=== PATIENT | female | born 1950 | race Caucasian/White ===

== ENCOUNTER 2022-04-14 12:50 | Emergency (ER) | payer MEDICARE, SELFPAY ==
--- NOTE | ~2022-04-14 | XR_ITS ---
EXAMINATION: XR chest 2V DATE: 04/14/2022 13:43 INDICATION: Shortness of breath. Chest pain. TECHNIQUE: PA and lateral views of the chest were obtained. COMPARISON: Chest radiograph dated 08/15/2015 FINDINGS: The lungs remain clear with no focal airspace opacities, pulmonary edema, pleural effusion or pneumot horax. The cardiomediastinal silhouette is normal. Moderate degenerative skeletal changes in the spin e and at both shoulders. Cholecystectomy clips in the upper abdomen. IMPRESSION: 1. No acute cardiopulmonary disease. Reviewed, dictated and finalized at location A.
--- NOTE | 2022-04-14 12:52 | ECG_ITS ---
Measurements Intervals [place] Rate: 105 P: 63 WA: 138 QRS: -6 QRSD: 85 T: 65 QT: 320 QTc: 423 Interpretive Statements SINUS TACHYCARDIA FREQUENT ATRIAL PREMATURE COMPLEXES DELAYED PRECORDIAL R/S TRANSITION ABNORMAL ECG NO PREVIOUS ECG AVAILABLE FOR COMPARISON Electronically Signed On 04-14-2022 13:00:31 CDT by Jesus Nath D.O.
[2022-04-14 13:04] VITALS: BP 137/85; PULSE 112; RESP 20; TEMP 36.9; O2SAT 100
[2022-04-14 13:11] LABS: Basophils Absolute Auto 0.1 K/mm3 (0.0-0.1); Basophils Percent Auto 0.8 % (0.2-1.2); Eosinophils Percent Auto 0.4 % (0-4.4); Hematocrit 42.5 % (37.0-47.0); Immature Granulocyte Absolute 0.03 K/mm3 (0.00-0.031); Immature Granulocyte Percent A 0.4 % (0-0.5); Lymphocytes Absolute Auto 3.75 K/mm3 (0.9-3.2); Lymphocytes Percent Auto 52.4 % (18.3-44.2); Mean Corpuscular HGB Conc 32.9 g/dl (32-36); Mean Corpuscular Hemoglobin 31.7 pg (26-34); Mean Corpuscular Volume 96.4 fl (80-100); Mean Platelet Volume 9.2 fl (7.4-10.4); Monocytes Absolute Auto 0.3 K/mm3 (0.1-0.6); Monocytes Percent Auto 4.2 % (2.6-8.5); Neutrophils Percent Auto 41.8 % (45.5-73.1); Platelet Count Result 169 k/mm3 (150-375); Red Blood Count 4.41 M/mm3 (4.2-5.4); Red Cell Distribution Width 14.2 % (11.5-14.5); White Blood Count 7.2 K/mm3 (4.5-10.0)
[2022-04-14 13:21] LABS: Alanine Aminotransferase 71 U/L (6-35); Alkaline Phosphatase 104 U/L (38-126); Anion Gap 12 mmol/L (8-16); Aspartate Amino Transferase 83 U/L (14-36); Blood Urea Nitrogen 11 mg/dL (7-17); Calcium 8.8 mg/dL (8.4-10.2); Carbon Dioxide 24 mmol/L (22-30); Chloride 101 mmol/L (98-107); Estimated CRCL calculation 58 ml/min; Estimated Glomerular Filt Rate > 60; Glucose 117 mg/dL (65-110); Lipase 118 U/L (23-300); Potassium 4.1 mmol/L (3.4-5.0); Sodium 137 mmol/L (137-145)
[2022-04-14 13:33] LABS: Troponin I < 0.012 ng/mL (0.000-0.034)
[2022-04-14 13:46] LABS: INR 1.1; Partial Thromboplastin Time 28.8 SECONDS (22.3-36.8); Prothrombin Time 13.6 Seconds (11.1-14.7)
[2022-04-14 14:54] VITALS: O2SAT 97
[2022-04-14 16:09] LABS: NT Pro B Type Natriuretic Pept 116 pg/mL (5-100)
--- NOTE | 2022-04-14 16:46 | ED.GENADULT ---
HPI - General Adult General Chief complaint: Shortness of Breath/Dyspnea Stated complaint: SOB Time Seen by Provider: 04/14/22 15:09 History of Present Illness HPI narrative: 71-year-old female presenting to the emergency department for evaluation of worsening exertional shortness of breath. Patient states that she has been feeling ill over the last 2 days but that today when she was walking through the grocery store she had onset of worsening shortness of breath. Patient states at that time her heart rate was elevated at 108 and she states her blood pressure was elevated. Upon arrival emergency department patient states she does feel improved. Patient is longer tachycardic and patient states she feels improved. Patient was able to ambulate in the emergency department without any issues. Patient denied any associated chest pain. Related Data Allergies Allergy/AdvReac Type Severity Reaction Status Date / Time chlorpheniramine Allergy Unknown paranoid Verified 04/14/22 15:05 [Scot-Tussin DM] dextromethorphan Allergy Unknown paranoid Verified 04/14/22 15:05 [Robafen DM Cough-Chest Congest] erythromycin base Allergy Unknown paranoid Verified 04/14/22 15:05 guaifenesin Allergy Unknown paranoid Verified 04/14/22 15:05 ibuprofen Allergy Unknown facial Verified 04/14/22 15:05 swelling Review of Systems Review of Systems: CONSTITUTIONAL: Denies fever, chills, or sweats. EYES: Denies visual changes, redness, or discharge. ENT: Denies rhinorrhea, congestion, sore throat, or otalgia. CARDIOVASCULAR: See HPI RESPIRATORY: See HPI GASTROINTESTINAL: Denies abdominal pain, nausea, vomiting, or diarrhea. GENITOURINARY: Denies dysuria or hematuria. SKIN: Denies rash or itching. MUSCULOSKELETAL: Denies back pain, joint pain, or myalgia. NEUROLOGIC: Denies headache, numbness, or weakness. [facility] Family History Family History Mother Family history of Parkinson's disease Family history of dementia Patient's mother is , Onset Age: 79 Father Patient's father is , Onset Age: 72 Other Cerebrovascular accident Family history of cardiovascular disease Hypertension Social History Social History Smoking status: Never smoker Alcohol intake: current Exam Narrative: APPEARANCE: Well appearing, no pain, no distress, well-nourished. HEAD: normocephalic, atraumatic. EYES: PERRLA/EOMI, conjunctivae clear. NOSE: Normal no drainage THROAT: Pharynx clear, no exudate. NECK: Supple. No adenopathy, no masses. RESPIRATORY: Airway patent, respirations nonlabored. Clear to auscultation bilaterally, no rales, rhonchi, wheezing. CARDIOVASCULAR: Regular rate and rhythm without murmurs rubs or gallops. ABDOMINAL: Soft, nontender, nondistended, normal bowel sounds MUSCULOSKELETAL: Moves all extremities. Strength/ROM intact, No edema, No calf tenderness. NEURO: Alert. Cranial nerves II through XII intact. Grossly intact SKIN: Warm, dry. Normal Color Course Course Emergency Course: Patient was able to ambulate in the emergency department with out any issue. Patient was afebrile with no leukocytosis. Patient's BNP was 116. Chest x-ray showed no acute cardiopulmonary disease. Patient was encouraged to have close follow-up with her primary care physician. Patient did feel improved at time of discharge. All questions and concerns were addressed. Vital Signs Vital signs: Vital Signs Temperature 98.4 F 04/14/22 13:04 Pulse Rate 112 H 04/14/22 13:04 Respiratory Rate 20 04/14/22 13:04 Blood Pressure 137/85 04/14/22 13:04 Pulse Oximetry 100 04/14/22 13:04 Oxygen Delivery Room Air 04/14/22 13:04 Temperature 98.4 F 04/14/22 13:04 Pulse Rate 87 04/14/22 17:28 Respiratory Rate 16 04/14/22 17:28 Blood Pressure 118/83 04/14/22 17:28 Pulse Oximetry 9
[2022-04-14 17:13] LABS: Troponin I < 0.012 ng/mL (0.000-0.034)
[2022-04-14 17:28] VITALS: BP 118/83; PULSE 87; RESP 16; O2SAT 97
[2022-04-14 17:50] LABS: SARS-CoV-2 RNA PCR Negative
== END 2022-04-14 17:30 | disposition home or self-care (01) ==
PROVIDERS: Emergency Provider Emergency Medicine; PCP Physician Assistant
DX: R06.81 Apnea, not elsewhere classified (principal); Z20.822 Contact with and (suspected) exposure to COVID-19
CPT/HCPCS: 36415; 71046; 80053; 83690; 83880; 84484; 85025; 85610; 85730; 93005; 99284; C9803; U0003; U0005

== ENCOUNTER 2022-04-28 14:43 | Outpatient (CLI) | payer MEDICARE, SELFPAY | END 2022-04-28 14:44 | disposition home or self-care (01) | PROVIDERS: PCP Family Medicine; Visit Provider Family Medicine | DX: F41.9 Anxiety disorder, unspecified (principal) | CPT/HCPCS: 36415; 84443 ==

== ENCOUNTER 2022-05-03 09:37 | Outpatient (CLI) | payer MEDICARE, SELFPAY ==
--- NOTE | 2022-05-03 09:55 | ECHO_ITS ---
Patient Info Name: Valeria Weston Age: 71 years : 1950 Gender: Female Ht: 62 in Wt: 195 lbs BSA: 2.01 m2 HR: 98 bpm BP: 136 / 87 mmHg Technical Quality: Good Exam Date: 05/03/2022 10:34 AM Exam Location: [facility] Patient Status: Outpatient Admit Date: 05/03/2022 Staff Ordering Physician: Allie Kendrick MD Commodity Loan Clerk: Sharmaine Mcallister RDCS Attending Provider: Allie Kendrick MD Referring Physician: Aroldo MELTON; Exam Type: CA echo doppler color flow Study Info Indications R06.02 - Shortness of breath Complete two-dimensional, color flow and Doppler transthoracic echocardiogram is performed. Summary 1. Complete two-dimensional, color flow and Doppler transthoracic echocardiogram is performed. 2. Left ventricular chamber dimension is normal. 3. Left ventricular systolic function is normal, estimated at 60-65%. 4. The left ventricular diastolic function is grade I diastolic dysfunction. 5. E/e' 8 is minimally elevated. Left Ventricle E/e' 8 is minimally elevated. Left ventricular chamber dimension is normal. Left ventricular systolic function is normal, estimated at 60-65%. The left ventricular diastolic function is grade I diastolic dysfunction. Right Ventricle Right ventricular systolic function is normal and with normal TAPSE 1.8 cm. Right ventricular chamber dimension is normal. Left Atria Left atrial chamber dimension is normal. Right Atria Right atrial chamber dimension is normal. Aortic Valve The aortic valve is trileaflet. There is no aortic valve stenosis. There is no aortic valve regurgitation. Pulmonic Valve There is no pulmonic regurgitation. Mitral Valve There is no mitral valve stenosis. There is no mitral valve regurgitation. Tricuspid Valve There is no tricuspid valve regurgitation. Pericardium/Pleural There is no pericardial effusion. Inferior Vena Cava Normal inferior vena cava with >50% collapse upon inspiration consistent with normal right atrial pressure, 5 mmHg. Aorta The aortic root size at the sinus of Valsalva is normal. Left Ventricular Outflow Tract Name Value Normal LVOT 2D LVOT Diameter 2.0 cm LVOT Doppler LVOT Peak Gradient 4 mmHg LVOT Mean Gradient 2 mmHg LVOT VTI 18 cm LVOT VTI/AV VTI Ratio 0.8 LVOT Stroke Volume 56 ml LVOT CO 5.0 l/min LVOT CI 2.5 l/min/m2 Mitral Valve Name Value Normal MV Doppler MV Peak Gradient 2 mmHg MV Mean Gradient 1 mmHg MV Decel Bossier 508 cm/s2 MV PHT 32 ms MV Area (
== END 2022-05-03 09:38 | disposition home or self-care (01) ==
PROVIDERS: PCP Family Medicine; Visit Provider Family Medicine
DX: R68.89 Other general symptoms and signs (principal); R06.02 Shortness of breath
CPT/HCPCS: 93306

== ENCOUNTER 2022-08-28 01:19 | Day surgery (SDC) | payer MEDICARE, SELFPAY ==
[2022-08-14 13:43] VITALS: BMI 36.3
[2022-08-28 08:43] VITALS: BP 139/76; PULSE 104; RESP 16; TEMP 36.2; O2SAT 97
[2022-08-28] MEDS: LACTATED RINGERS 1,000 ML 150 ML IV CONT (08:51)
--- NOTE | 2022-08-28 09:28 | PM.HPGS ---
History of Present Illness History of Present Illness Consent: Risks, benefits, and alternatives have been discussed and questions answered. Patient agrees to proceed with procedure. Chief complaint: neoplasm screening Narrative: Valeria Weston is a 71 year old female Presents for screening colonoscopy. Patient's current weight appetite and bowel movements are normal. Patient denies abdominal pain. She has had no bleeding. Family history noncontributory. Patient has previous colonoscopy 10 years ago was unremarkable. Patient does report treatment 5 years ago for breast cancer and currently felt be free from disease. Review of Systems Review of Systems: Review of systems noncontributory. [facility] Family History Family History Mother Family history of Parkinson's disease Family history of dementia Patient's mother is , Onset Age: 79 Father Patient's father is , Onset Age: 72 Other Cerebrovascular accident Family history of cardiovascular disease Hypertension Social History Social History Smoking status: Never smoker Alcohol intake: current Lack of Transportation: No Lack of Food: Never True Current Housing: I Have Housing Concerned About Future Housing: No Difficulty Paying Gas/Electric Bills: No Difficulty Paying for Meds: No Currently Unemployed: No Education: Master's Degree or Higher Difficulty w/ Childcare or Family Care: No Living arrangements: with family Meds Home Medications and Allergies Home Medications Medication Instructions Recorded Confirmed Type fluticasone propionate 50 2 spray intranasal DAILY #18.2 mL 10/28/19 08/28/22 Rx mcg/actuation nasal spray,suspension (Flonase Allergy Relief) paroxetine HCl 30 mg tablet (Paxil) 60 mg PO DAILY 08/14/22 08/28/22 History lisinopril 10 mg tablet 10 mg PO DAILY 08/28/22 08/28/22 History Allergies Allergy/AdvReac Type Severity Reaction Status Date / Time erythromycin base Allergy Unknown paranoid Verified 08/28/22 08:41 Vital Signs Vital Signs - 24 hr 08/28/22 08:43 Temperature 97.1 F L Pulse Rate 104 H Respiratory Rate 16 Blood Pressure 139/76 Pulse Oximetry 97 Oxygen Delivery Room Air Exam Narrative: Physical exam reveals patient to be alert. Vital signs stable. HEENT exam is unremarkable. Patient is anicteric. Lungs are clear to auscultation and percussion. Heart is without murmur or extra sounds. Abdomen bowel sounds present soft nontender with no organomegaly. Digital external rectal exam is normal. Assessment and Plan Assessment and plan (1) Screening for colon cancer: Code(s): Z12.11 - Encounter for screening for malignant neoplasm of colon Status: Acute Assessment and Plan: Patient presents today for screening colonoscopy. Appears to be at average risk for colon polyps. Further recommendations may be given after endoscopy.
--- NOTE | 2022-08-28 09:44 | WPDANESEPPF ---
Anes - Initial Pre Proc Eval Procedure: Operation Date: 08/28/22 10:00 Proposed Procedures p Colonoscopy - Sandro Cervantes MD Date/Time: 08/28/22 09:44 Surgeon: Sandro Cervantes MD Pre Op Diagnosis: neoplasm screening Patient Data Age: 71 Gender: F Height: 1.55 m Weight: 86.2 kg Last Vital Signs Temp 97.1 F L 08/28/22 08:43 Pulse 104 H 08/28/22 08:43 Resp 16 08/28/22 08:43 BP 139/76 08/28/22 08:43 Pulse Ox 97 08/28/22 08:43 O2 Del Method Room Air 08/28/22 08:43 Allergies Allergy/AdvReac Type Severity Reaction Status Date / Time erythromycin base Allergy Unknown paranoid Verified 08/28/22 08:41 Home Medications Medication Instructions Recorded Confirmed Type fluticasone propionate 50 2 spray intranasal DAILY #18.2 mL 10/28/19 08/28/22 Rx mcg/actuation nasal spray,suspension (Flonase Allergy Relief) paroxetine HCl 30 mg tablet (Paxil) 60 mg PO DAILY 08/14/22 08/28/22 History lisinopril 10 mg tablet 10 mg PO DAILY 08/28/22 08/28/22 History Patient hx anesthesia problems: none Family hx anesthesia problems: none Results Review: All pre-operative results and documents have been reviewed as part of the pre-operative evaluation. [facility], [facility] Family History Family History Mother Family history of Parkinson's disease Family history of dementia Patient's mother is , Onset Age: 79 Father Patient's father is , Onset Age: 72 Other Cerebrovascular accident Family history of cardiovascular disease Hypertension Social History Social History Smoking status: Never smoker Alcohol intake: current Lack of Transportation: No Lack of Food: Never True Current Housing: I Have Housing Concerned About Future Housing: No Difficulty Paying Gas/Electric Bills: No Difficulty Paying for Meds: No Currently Unemployed: No Education: Master's Degree or Higher Difficulty w/ Childcare or Family Care: No Living arrangements: with family Anes - Eval Final PreProcedure Day of Procedure 08/28/22 09:44 Patient weight: obese Heart: regular rate and rhythm Lungs: clear to auscultation Airway: Mallampati scale class II Neurological: alert and oriented Last oral intake: >/= 8 hours ASA classification: III Emergent: no Anesthetic plan: proceed Anesthesia type and monitoring: general GIVS and standard monitoring Results Review: All pre-operative results and documents have been reviewed as part of the pre-operative evaluation. Informed Consent: The patient's anesthetic plan and its attendant risks and benefits were discussed with the patient/family/POA. Questions were solicited and answers provided to the satisfaction of the patient/family/POA.
[2022-08-28 10:28] VITALS: BP 83/40; PULSE 78; RESP 22; O2SAT 98
[2022-08-28 10:38] VITALS: BP 86/51; PULSE 76; RESP 16; O2SAT 98
[2022-08-28 10:47] VITALS: BP 102/62; PULSE 68; RESP 20; O2SAT 100
== END 2022-08-28 11:02 | disposition home or self-care (01) ==
PROVIDERS: PCP Family Medicine; Visit Provider Internal Medicine Gastroenterology
PROC: 0DJD8ZZ Inspection of Lower Intestinal Tract, Via Natural or Artificial Opening Endoscopic (ICD-10-PCS; CPT 45378; principal; 2022-08-28 10:00)
DX: Z12.11 Encounter for screening for malignant neoplasm of colon (principal); D12.5 Benign neoplasm of sigmoid colon; K64.8 Other hemorrhoids; E66.9 Obesity, unspecified; Z68.35 Body mass index [BMI] 35.0-35.9, adult; Z85.3 Personal history of malignant neoplasm of breast
CPT/HCPCS: 45385; 88305; J2704; J7120

== ENCOUNTER 2022-12-01 09:30 | Outpatient (CLI) | payer MEDICARE, SELFPAY ==
[2022-12-01 19:00] LABS: Basophils Percent Auto 0.5 % (0.2-1.2); Eosinophils Absolute Auto 0.1 K/mm3 (0-0.3); Eosinophils Percent Auto 1.8 % (0-4.4); Hemoglobin 13.3 g/dL (12.0-15.0); Immature Granulocyte Absolute 0.01 K/mm3 (0.00-0.031); Immature Granulocyte Percent A 0.2 % (0-0.5); Lymphocytes Absolute Auto 2.35 K/mm3 (0.9-3.2); Lymphocytes Percent Auto 41.9 % (18.3-44.2); Mean Corpuscular HGB Conc 31.7 g/dl (32-36); Mean Corpuscular Hemoglobin 32.2 pg (26-34); Mean Corpuscular Volume 101.7 fl (80-100); Monocytes Absolute Auto 0.4 K/mm3 (0.1-0.6); Monocytes Percent Auto 6.4 % (2.6-8.5); Neutrophils Absolute Auto 2.8 K/mm3 (1.3-6.7); Neutrophils Percent Auto 49.2 % (45.5-73.1); Platelet Count Result 238 k/mm3 (150-375); Red Blood Count 4.13 M/mm3 (4.2-5.4); Red Cell Distribution Width 13.7 % (11.5-14.5); White Blood Count 5.6 K/mm3 (4.5-10.0)
[2022-12-01 19:03] LABS: Alanine Aminotransferase 31 U/L (6-35); Alkaline Phosphatase 74 U/L (38-126); Anion Gap 1 mmol/L (8-16); Aspartate Amino Transferase 43 U/L (14-36); Bilirubin,Total 0.9 mg/dL (0.2-1.3); Blood Urea Nitrogen 17 mg/dL (7-17); Carbon Dioxide 36 mmol/L (22-30); Chloride 103 mmol/L (98-107); Cholesterol 247 mg/dL (0-200); Estimated Glomerular Filt Rate > 60; Glucose 90 mg/dL (65-110); HDL Direct 57 mg/dL; Potassium 4.2 mmol/L (3.4-5.0); Sodium 140 mmol/L (137-145); Triglycerides 91 mg/dL (<150)
[2022-12-01 19:14] LABS: LDL Cholesterol Direct 143 mg/dL
[2022-12-01 20:07] LABS: Hepatitis C Virus Antibody Negative (Negative)
== END 2022-12-01 09:31 | disposition home or self-care (01) ==
LOC: ANHGOSHLAB 09:31
PROVIDERS: PCP Family Medicine; Visit Provider Family Medicine
DX: E78.2 Mixed hyperlipidemia (principal); E55.9 Vitamin D deficiency, unspecified; Z11.59 Encounter for screening for other viral diseases; R06.02 Shortness of breath; R74.8 Abnormal levels of other serum enzymes
CPT/HCPCS: 36415; 80053; 80061; 82306; 82728; 85025; 86803

== ENCOUNTER 2022-12-05 14:00 | Outpatient (CLI) | payer MEDICARE, SELFPAY ==
[2022-12-11 10:29] LABS: Gliadin AB, IgG <1.0 U/mL (<15.0); TTG IGA AB <1.0 U/mL (<15.0)
== END 2022-12-05 14:01 | disposition home or self-care (01) ==
LOC: ANHGOSHLAB 14:01
PROVIDERS: PCP Family Medicine; Visit Provider Family Medicine
DX: D75.89 Other specified diseases of blood and blood-forming organs (principal)
CPT/HCPCS: 36415; 82607; 86255; 86364

== ENCOUNTER 2024-02-26 10:24 | Outpatient (CLI) | payer MEDICARE, SELFPAY ==
[2024-02-26 15:53] LABS: Basophils Percent Auto 0.5 % (0.2-1.2); Eosinophils Absolute Auto 0.1 K/mm3 (0-0.3); Eosinophils Percent Auto 1.6 % (0-4.4); Hematocrit 41.9 % (37.0-47.0); Hemoglobin 13.7 g/dL (12.0-15.0); Immature Granulocyte Absolute 0.02 K/mm3 (0.00-0.031); Immature Granulocyte Percent A 0.3 % (0-0.5); Lymphocytes Absolute Auto 2.83 K/mm3 (0.9-3.2); Lymphocytes Percent Auto 38.5 % (18.3-44.2); Mean Corpuscular HGB Conc 32.7 g/dl (32-36); Mean Corpuscular Hemoglobin 32.6 pg (26-34); Mean Corpuscular Volume 99.8 fl (80-100); Mean Platelet Volume 10.3 fl (7.4-10.4); Monocytes Absolute Auto 0.5 K/mm3 (0.1-0.6); Monocytes Percent Auto 6.3 % (2.6-8.5); Neutrophils Absolute Auto 3.9 K/mm3 (1.3-6.7); Neutrophils Percent Auto 52.8 % (45.5-73.1); Platelet Count Result 245 k/mm3 (150-375); Red Cell Distribution Width 13.6 % (11.5-14.5); White Blood Count 7.4 K/mm3 (4.5-10.0)
[2024-02-26 17:26] LABS: Alanine Aminotransferase 19 U/L (6-35); Albumin Level 4.1 g/dL (3.5-5.1); Alkaline Phosphatase 69 U/L (38-126); Anion Gap 11 mmol/L (4-12); Aspartate Amino Transferase 31 U/L (14-36); Bilirubin,Total 0.9 mg/dL (0.2-1.3); Blood Urea Nitrogen 17 mg/dL (7-17); Calcium 9.3 mg/dL (8.4-10.2); Carbon Dioxide 28 mmol/L (22-30); Chloride 101 mmol/L (98-107); Cholesterol 228 mg/dL (0-200); Estimated Glomerular Filt Rate > 60; Glucose 93 mg/dL (65-110); HDL Direct 46 mg/dL; Potassium 4.2 mmol/L (3.4-5.0); Sodium 140 mmol/L (137-145); Triglycerides 130 mg/dL (<150)
[2024-02-26 17:36] LABS: LDL Cholesterol Direct 134 mg/dL
[2024-02-26 19:22] LABS: Vitamin D 25 Hydroxy 27.8 ng/mL
== END 2024-02-26 10:25 | disposition home or self-care (01) ==
PROVIDERS: PCP Family Medicine; Visit Provider Family Medicine
DX: F32.5 Major depressive disorder, single episode, in full remission (principal); E55.9 Vitamin D deficiency, unspecified; E66.01 Morbid (severe) obesity due to excess calories; Z68.39 Body mass index [BMI] 39.0-39.9, adult; Z79.899 Other long term (current) drug therapy; I10 Essential (primary) hypertension
CPT/HCPCS: 36415; 80053; 80061; 82306; 84443; 85025